=== PATIENT | female | born 1995 | race Caucasian/White ===

== ENCOUNTER 2018-07-25 13:40 | Emergency (ER) | payer OTHER, SELFPAY ==
[2018-07-25 13:58] VITALS: BP 134/77; PULSE 93; RESP 18; TEMP 36.5; O2SAT 100; BMI 31.5
--- NOTE | 2018-07-25 14:04 | DI.RAD.S_ITS ---
PROCEDURE: XR ANKLE RT MIN 3V INDICATIONS: Ankle pain TECHNIQUE: 3 views of the ankle were acquired. COMPARISON: None. FINDINGS: Bones: No fractures or dislocations. Ankle mortise is normally aligned. No suspicious bony lesions. Soft tissues: No tibiotalar joint effusion. Achilles tendon appears normal. IMPRESSION: 1. No fracture or subluxation. Dictated by: Drew Sevilla M.D. on 07/25/2018 at 14:53 Approved by: Drew Sevilla M.D. on 07/25/2018 at 14:53
--- NOTE | 2018-07-25 15:24 | ED_ITS ---
HPI - Extremity Injury (Lower) <JOHNY Shankar - Last Filed: 07/25/18 16:45> General Chief Complaint: Extremity Injury, Lower Stated Complaint: sprained right ankle Time Seen by Provider: 07/25/18 14:04 Source: patient Mode of arrival: ambulatory Limitations: no limitations History of Present Illness HPI Narrative: Patient is a healthy 23-year-old female nonsmoker with history right ankle pain who presents with chief complaint of right ankle pain. 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 She states she has a history of right ankle pain and problems and has had an MRI on her ankle but never found out the results of it. She has not contacted the provider who perform the MRI to get the results. She states she has tried some rest ice compression elevation as well as [id number] pain medications as needed and able. She denies any numbness or tingling. Review of Systems <KATHLEEN Shankar - Last Filed: 07/25/18 16:45> Review of Systems GENERAL: Denies chills, fatigue, malaise, fever, sweats. HEENT: Denies sinus pain, ear pain, sore throat, difficulty swallowing, dizziness. RESPIRATORY: Denies dyspnea, cough, wheezing, hemoptysis, sputum. CARDIOVASCULAR: Denies chest pain, palpitations, orthopnea, edema, GASTROINTESTINAL: Denies nausea, vomiting, abdominal pain, diarrhea, constipation, melena. : Denies dysuria, frequency, incontinence, hematuria, urinary retention. MUSCULOSKELETAL: See HPI SKIN: Denies rash, skin lesions, or other NEUROLOGIC: Denies weakness, headache, numbness, change in speech, confusion, seizures, incoordination. PSYCHIATRIC: No concerning psychosocial issues. 12 point review of systems is negative except for those stated above Exam <KATHLEEN Shankar - Last Filed: 07/25/18 16:45> Narrative Exam Narrative: GENERAL: This is a well-nourished, well-developed patient, in no acute distress HEAD: Atraumatic. Normocephalic. No temporal or scalp tenderness. EYES: Pupils equal round and reactive. Extraocular motions intact. No scleral icterus. No injection or drainage. ENT: Nose without bleeding, purulent drainage or septal hematoma. Throat without erythema, tonsillar hypertrophy or exudate. Uvula midline. Airway patent. NECK: Trachea midline. No JVD or lymphadenopathy. Supple, nontender, no meningeal signs. CARDIOVASCULAR: Regular rate and rhythm RESPIRATORY: no increased respiratory effort. No cough in emergency department. GASTROINTESTINAL: Abdomen soft, non-tender, nondistended. No hepato-splenomegaly , or palpable masses. No guarding. EXTREMITIES: Positive pedal pulses right foot. Swelling noted lateral aspect of right ankle that is slight. Weight-bearing with no problem. Full range of motion noted. BACK: Nontender without deformity or crepitance. No flank tenderness. NEURO: AOx3. SKIN: No erythema ecchymosis or rash noted right ankle. Initial Vital Signs Initial Vital Signs: Vital Signs Temperature 97.7 F 07/25/18 13:58 Pulse Rate 93 H 07/25/18 13:58 Respiratory Rate 18 07/25/18 13:58 Blood Pressure 134/77 07/25/18 13:58 Pulse Oximetry 100 07/25/18 13:58 <DO Bridgett Hall Last Filed: 07/27/18 07:56> Initial Vital Signs Initial Vital Signs: Vital Signs Temperature 97.7 F 07/25/18 13:58 Pulse Rate 93 H 07/25/18 13:58 Respiratory Rate 18 07/25/18 13:58 Blood Pressure 134/77 07/25/18 13:58 Pulse Oximetry 100 07/25/18 13:58 Course <JOHNY Shankar - Last Filed: 07/25/18 16:45> Orders Ordered: ED Orders 07/25/18 14:04 XR ankle RT min 3V Stat Vital Signs - 8 hr 07/25/18 13:58 07/25/18 15:30 Temperature 97.7 F Pulse Rate 93 H 71 Respiratory Rate 18 16 Blood Pressure 134/77 Pulse Oximetry 100 98 <DO Bridgett Hall Last Filed: 07/27/18 07:56> Orders Ordered: ED Orders 07/25/18 14:04 XR ankle RT min 3V Stat Vital Signs - 8 hr 07/25/18 13:58 07/25/18 15:30 Temperature 97.7 F Pulse Rate 93 H 71 Respiratory Rate 18 16 Blood Pressure 134/77 Pulse Oximetry 100 98 MDM - Extremity Injury (Lower) <JOHNY Shankar Last Filed: 07/25/18 16:45> Imaging Data right ankle xray: Radiologist's impression: Chart Viewer Diagnostics DATE TYPE STATUS AUTHOR Hx 07/25/18 14:04 SevillaDrew brown Nicole M 23, F0 1995 [facility], ED - Main ED: R02 177.8cm 99.79kg BSA: 2.17m? BMI: 31.6kg/m? Extremity Injury, Lower Search Chart No Data to Display No Data to Display ONSET Today 15:[address] [address] XRay Report Signed Patient: Milli Edmond MMR#: [id number] : 1995Acct:[id number] Age/Sex: 23 / FDate of Service: 07/25/18 Loc: ED Accession Number: [id number] Procedure: XR ankle RT min 3V Ordering Provider: Theresa Duenas PROCEDURE: XR ANKLE RT MIN 3V INDICATIONS: Ankle pain TECHNIQUE: 3 views of the ankle were acquired. COMPARISON: None. FINDINGS: Bones: No fractures or dislocations. Ankle mortise is normally aligned. No suspicious bony lesions. Soft tissues: No tibiotalar joint effusion. Achilles tendon appears normal. IMPRESSION: 1. No fracture or subluxation. Dictated by: Drew Sevilla M.D. on 07/25/2018 at 14:53 Approved by: Drew Sevilla M.D. on 07/25/2018 at 14:53 [facility] Narrative Medical decision making narrative: Patient presents for chief complaint of right ankle pain. She had no fracture on x-ray and has been weight-bearing with no problem. I discussed at length rest ice compression elevation as well as [id number] pain medications as needed and able. She is neurovascularly intact and hemodynamically stable. I discussed at length follow up with primary care provider if worsening or no improvement she may need further imaging or x-rays. Discharge Plan Departure Patient Disposition: Home Clinical Impression: Ankle sprain and strain Discharge Date/Time: 07/25/18 15:30 Interventions: ED Discharge Assessment Last Done: 07/25/18 15:30 Instructions: How To Perform RICE (Rest, Ice, Compress, Elevate), DI for Ankle Pain Activity Restrictions/Additional Instructions: Your x-ray came back normal today. Please follow-up with primary care provider regarding your ankle pain if it persists. Please use over-the- counter pain medication as needed and able. Please use rest ice compression elevation. Please follow-up with her primary care provider if her ankle pain does not go away as you may need further imaging or physical therapy. <Velvet Thomason, DO - Last Filed: 07/27/18 07:56> Cosign ED Attending Jignaature Attestation: I was immediately available in the department for consultation. Documentation has been reviewed. I agree with assessment and plan.
[2018-07-25 15:30] VITALS: PULSE 71; RESP 16; O2SAT 98
== END 2018-07-25 15:30 | disposition home or self-care (01) ==
PROVIDERS: Emergency Provider Nurse Practitioner Family
DX: S93.401A Sprain of unspecified ligament of right ankle, initial encounter (principal); W18.40XA Slipping, tripping and stumbling without falling, unspecified, initial encounter
CPT/HCPCS: 73610; 99283